=== PATIENT | female | born 1975 | race Hispanic/Latino ===

== ENCOUNTER 2022-03-02 22:01 | Emergency (ER) | payer OTHER ==
[~2022-03-02] VITALS: Ht 162.6 cm; Wt 81.6 kg
[2022-03-02 23:13] VITALS: BP 150/98
[2022-03-03] MEDS ORDERED: AMOX500C2 PO (04:19)
[2022-03-03] MEDS ORDERED: IBUP-1493 PO (04:19)
[2022-03-03] MEDS ORDERED: KETOROLAC 30MG VIAL (30MG/ML) ONE (04:26)
[2022-03-03] MEDS ORDERED: KETOROLAC 30MG VIAL (30MG/ML) IM ONE (04:30)
== END 2022-03-03 04:36 | disposition home or self-care (01) ==
LOC: EDH 22:01
DX: K04.7 Periapical abscess without sinus (principal)
CPT/HCPCS: 99283; 96372; J1885